=== PATIENT | female | born 1980 | race Caucasian/White ===

== ENCOUNTER 2017-04-27 20:29 | Emergency (ER) | payer MEDICAID ==
[~2017-04-27] VITALS: Ht 177.8 cm; Wt 131.1 kg
[2017-04-27 20:33] VITALS: BP 143/82
== END 2017-04-27 22:43 | disposition home or self-care (01) ==
LOC: ED 20:29
DX: M25.511 Pain in right shoulder (principal); R03.0 Elevated blood-pressure reading, without diagnosis of hypertension; Z98.51 Tubal ligation status; Z88.1 Allergy status to other antibiotic agents
CPT/HCPCS: J1885

== ENCOUNTER 2018-10-27 12:09 | Emergency (ER) | payer MEDICAID ==
[~2018-10-27] VITALS: Ht 175.3 cm; Wt 117.0 kg
[2018-10-27 12:19] VITALS: Ht 175.3 cm; Wt 117.0 kg
[2018-10-27 13:29] VITALS: BP 121/75
== END 2018-10-27 13:29 | disposition home or self-care (01) ==
LOC: ED 12:09
DX: J02.0 Streptococcal pharyngitis (principal)
CPT/HCPCS: 99406; J0561; J1100; Q0092

== ENCOUNTER 2019-05-11 19:25 | Emergency (ER) | payer MEDICAID ==
[~2019-05-11] VITALS: Ht 175.3 cm; Wt 83.0 kg
[2019-05-11 19:40] VITALS: Ht 175.3 cm; Wt 83.0 kg
[2019-05-11 21:02] VITALS: BP 124/65
== END 2019-05-11 21:02 | disposition home or self-care (01) ==
LOC: ED 19:25
DX: S83.8X1A Sprain of other specified parts of right knee, initial encounter (principal); F17.210 Nicotine dependence, cigarettes, uncomplicated; G43.909 Migraine, unspecified, not intractable, without status migrainosus; Z88.0 Allergy status to penicillin; Z88.8 Allergy status to other drugs, medicaments and biological substances; W01.0XXA Fall on same level from slipping, tripping and stumbling without subsequent striking against object, initial encounter; Y93.89 Activity, other specified; Y92.89 Other specified places as the place of occurrence of the external cause; Y99.8 Other external cause status
CPT/HCPCS: J1885; Q0092

== ENCOUNTER 2020-04-20 13:19 | Emergency (ER) | payer MEDICAID ==
[~2020-04-20] VITALS: Ht 175.3 cm; Wt 136.1 kg
[2020-04-20 13:26] VITALS: Ht 175.3 cm; Wt 136.1 kg
[2020-04-20 14:07] LABS: BASOPHIL % 0.4 % (0-2)
[2020-04-20 14:12] LABS: UA SPECIFIC GRAVITY 1.025 (1.005-1.035); microscopic required? YES; urine erythrocyte 2+ (NEGATIVE)
[2020-04-20 14:12] LABS: CALCIUM 8.5 mg/dL (8.5-10.1); CARBON DIOXIDE 27.5 mmol/L (21-32); CHLORIDE SERUM 102 mmol/L (98-107); CREATININE SERUM 0.9 mg/dL (0.6-1.0); GFR1 > 60 mL/min; GLUCOSE SERUM 108 mg/dL (74-106); POTASSIUM SERUM 3.9 mmol/L (3.5-5.1); SODIUM SERUM 139 mmol/L (136-145)
[2020-04-20 14:16] LABS: ALBUMIN 3.6 g/dL (3.4-5.0); ALKALINE PHOSPHATASE 64 U/L (46-116); ALT/SGPT 40 U/L (14-59); AST/SGOT 31 U/L (15-37); BILIRUBIN TOTAL 0.4 mg/dL (0.20-1.00); LIPASE 97 IU/L (73-393); PLATELET COUNT 432 x10^3mcL (130-400); RED CELL DISTRIBUTION WIDTH 15.1 % (11.5-14.5); TOTAL PROTEIN, SERUM 7.8 g/dL (6.4-8.2)
[2020-04-20 16:15] VITALS: BP 124/67
== END 2020-04-20 16:15 | disposition home or self-care (01) ==
LOC: ED 13:19
PROVIDERS: Emergency Medicine
DX: N83.202 Unspecified ovarian cyst, left side (principal); G43.909 Migraine, unspecified, not intractable, without status migrainosus; Z88.1 Allergy status to other antibiotic agents
CPT/HCPCS: J2270; J2405; Q9967